=== PATIENT | female | born 1985 | race Caucasian/White ===

== ENCOUNTER 2021-05-22 19:58 | Emergency (ER) | payer SELFPAY ==
[~2021-05-22] VITALS: Ht 160 cm; Wt 187.0 kg
[2021-05-22 19:58] VITALS: BP 178/84
== END 2021-05-22 21:50 | disposition left against medical advice (07) ==
LOC: M ED 19:58
DX: Z53.21 Procedure and treatment not carried out due to patient leaving prior to being seen by health care provider (principal)